=== PATIENT | male | born 1985 | race Hispanic/Latino ===

== ENCOUNTER 2023-08-16 14:41 | Emergency (ER) | payer OTHER ==
[~2023-08-16] VITALS: Ht 165.1 cm; Wt 80.7 kg
[2023-08-16 14:46] VITALS: BP 142/91; PULSE 118; RESP 16
[2023-08-16] MEDS ORDERED: KETOROLAC 60 MG VIAL (30MG/ML) IM ONE (15:30)
[2023-08-16] MEDS ORDERED: CYCLOBENZAPRINE HCL 10 MG TABLET PO ONE (15:30)
[2023-08-16] MEDS ORDERED: CYCL-309 PO (16:35)
[2023-08-16] MEDS ORDERED: IBUP-2077 PO (16:35)
== END 2023-08-16 17:22 | disposition home or self-care (01) ==
LOC: EDH 14:41
DX: S76.111A Strain of right quadriceps muscle, fascia and tendon, initial encounter (principal); E11.9 Type 2 diabetes mellitus without complications; W18.39XA Other fall on same level, initial encounter; Y93.89 Activity, other specified; Y92.89 Other specified places as the place of occurrence of the external cause; Y99.8 Other external cause status
CPT/HCPCS: 99283; 73552; 96372; J1885